=== PATIENT | female | born 1980 | race African-American/Black ===

== ENCOUNTER 2022-05-20 16:32 | Emergency (ER) | payer MEDICAID, SELFPAY ==
[2022-05-20 16:43] VITALS: BP 131/78; PULSE 76; RESP 16; TEMP 37.1; O2SAT 99; BMI 23.3
[2022-05-20 17:00] VITALS: BP 123/99; PULSE 89; O2SAT 98
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
[2022-05-20] MEDS: IBUPROFEN 200 MG TABLET 600 MG PO (18:11)
[2022-05-20 19:00] VITALS: BP 113/75; PULSE 86; O2SAT 99
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
== END 2022-05-20 19:37 | disposition home or self-care (01) ==
PROVIDERS: Emergency Provider Family Medicine; PCP Advanced Practice Midwife
DX: S39.012A Strain of muscle, fascia and tendon of lower back, initial encounter (principal); V43.52XA Car driver injured in collision with other type car in traffic accident, initial encounter
CPT/HCPCS: 72131; 99283; 99284; A9270

== ENCOUNTER 2022-09-19 14:00 | Outpatient (RCR) | payer MEDICAID, SELFPAY ==
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
== END 2022-12-26 23:59 | disposition home or self-care (01) ==
PROVIDERS: PCP Advanced Practice Midwife; Visit Provider Family Medicine
DX: M54.50 Low back pain, unspecified (principal); Z51.89 Encounter for other specified aftercare
CPT/HCPCS: 97110; 97161

== ENCOUNTER 2023-12-26 08:10 | Outpatient (CLI) | payer MEDICAID, SELFPAY ==
--- OUTSIDE RECORDS SUMMARY | 2023-12-29 14:32 | XMS_ITS | Clinical Summary ---
Author Organization [employer] [facility] [employer] Address [place], [place] [address] Care Team Providers Care Stamp Classifier Name Role Phone Ailin Montes MD Primary Care Provider [phone] None, Dr Unavailable Unavailable Allergies Active Allergy Reactions Criticality Noted Date Comments Sulfa (Sulfonamide Antibiotics) Rash 01/07 Medications Medication Sig Dispensed Refills Start Date End Date Status ergocalciferol (VITAMIN D2; DRISDOL) 50,000 unit capsuleIndications: Vitamin D deficiency TAKE 1 CAPSULE BY MOUTH ON FRIDAY, AND FRIDAY 12 capsule 0 02/06/2014 Active adapalene (DIFFERIN) 0.1 % gelIndications:Acne Apply topically to affected area(s) at bedtime. 1 Tube 0 03/14/2014 Active Cholecalciferol, Vitamin D3, (VITAMIN D-3) 5,000 unit tabIndications:Claudia min D deficiency Take 1 tablet by mouth once daily. 90 tablet 3 03/23/2014 Active Active Problems Problem Noted Date Diagnosed Date Acne 03/14/2014 Vitamin D deficiency 12/06/2013 Fatigue 12/06/2013 Encounters Date Type Department Care Team Description 12/25/2023 Lab Requisition [facility] [phone] Betty Eddy, COOLING PAN TENDER from Last 3 Months Immunizations Name Administration Dates Next Due DTaP 08/12/1986, 4,05/15/1982,1981,01/16/1982 Hepatitis A (Adult) 11/11/2011,05/15/2009,2000 Hepatitis B (Peds) 01/27/1996,01/13/1995, 995 Human Papilloma Virus Vaccine 06/04/2007, 007,12/03/2006 Inactivated Polio Vaccine 08/12/1986,,05/15/1982,1981,01/16/1982 Influenza A (H1N1), Inactiva natalie (Age >=3 Years) 05/15/2009 Influenza, IIV3 (Age >=3 years) 04/09/2011,04/07,03/28/2004 MMR 12/16/1994,08/12/1986,06/26/1983 Td (Age >=7 Years) 11/27/1999,01/27/1996 Tdap 08/10/2008 Family History Medical History Relation Name Comments Hypertension Father Other Father gout Good Health Mother Relation Name Status Comments Father Alive Mother Alive Social History Tobacco Use Types Packs/Day Years Used Date Smoking Tobacco: Never Smokeless Tobacco: Never Alcohol Use Standard Drinks/Week Comments Yes 0 (1 standard drink = 0.6 oz pur e alcohol) occasional Sex and Gender Information Value Date Recorded Sex Assigned at Not on file Gender Identity Not on file Sexual Orientation Not on file Obstetrics History Para Term AB IAB SAB Ectopic Multiple Livin g Live Births 1 2 Date Outcome GA Total Labor Labor/2nd/3rd Weight Sex Type Anes PTL Mimi A1 A5 Name Clin Last Filed Vital Signs Vital Sign Reading Time Taken Comments Blood Pressure 100/64 03/14/2014 10:00 AM CDT Pulse 70 03/14/2014 10:00 AM CDT Temperature 36.8 ??C (98.3 ??F) 03/14/2014 10:00 AM C DT Respiratory Rate - - Oxygen Saturation - - Inhaled Oxygen Concentration - - Weight 52.2 kg (115 lb) 03/14/2014 10:00 AM CDT Height 164.5 cm (5' 4.75) 03/14/2014 10:00 AM C DT Body Mass Index 19.29 03/14/2014 10:00 AM CDT Plan of Treatment Health Maintenance Due Date Last Done Comments Depression screening for age 12+ 1993 HIV for age 15-65 1996 BMI (ht and wt on same day) for age 18+ 11/09/1999 Hepatitis C screening for age 18-79 11/09/1999 Tetanus booster 08/10/2018 08/10/2008, 06/, 01/27/1996 COVID-19 vaccine series (2022-24 season) 2023 Pap test for age 21-65 06/22/2023 1, 06/22/2020, 10/05/2019, Additional history exists Influenza for age 9-49 02/08/2024 4, 04/09/2011, 05/15/2009, Additional history exists Tdap Completed 08/10/2008 Pneumococcal series for age 6-64 Aged Out No longer eligible based on patient's age to complete this topic Procedures Procedure Name Priority Date/Time Associated Diagnosis Comments LAB TRACKING EVENT Routine 12/24/2023 12 :00 PM CDT FORESTRY CONTRACTOR THIN PREP PAP SCREEN IMAGED Routine 06/22/2020 2:45 PM SAFETY AND HEALTH CONSULTANT from Last 3 Months or Most Recently Relevant to Health Maintenance Results * LAB TRACKING EVENT (12/24/2023 12:00 PM CDT) Other (Other) Client Collect / Unknown 12/24/2023 12:00 PM CDT 12/25/2023 3:34 PM CDT Betty Eddy NP LAB BILL ONLY [facility] [address] [place] [address], * FORESTRY CONTRACTOR THIN PREP PAP SCREEN IMAGED (06/22/2020 2:45 PM SAFETY AND HEALTH CONSULTANT) Case Report Gynecologic Cytology Report ? Case: [id number] ? Authorizing Provider: ??Sabra Skelton ?Collected: ? 06/22/2020 1445 ? MD Kelly ? Ordering Location: ? [facility] ?Received: ?06/23/2020 1901 ? First Screen: ?Jeanette Sethi ? Specimen: ?FORESTRY CONTRACTOR ThinPrep Vial Screening, Cervical/Vaginal ? 07/05/2020 8:04 AM [facility] INTERPRETATION/ RESULT NEGATIVE FOR INTRAEPITHELIAL LESION OR MALIGNANCY (NIL) (none) 07/05/2020 8:04 AM [facility] IMEN ADEQUACY Satisfactory for evaluation Endocervical component present 07/05/2020 8:04 AM [facility] HPV REQUEST HPV and PAP 07/05/2020 8:04 AM [facility] Date of LMP 06/19/2020 07/05/2020 8:04 AM [facility] Last Pap Date 10/05/2019 07/05/2020 8:04 AM [facility] Last Pap Result NIL 8:04 AM [facility] Comment:+HPV Additional Information 07/05/2020 8:04 AM [facility] Comment: Interpreted at [facility] - [address], [place] [address] Automated Review Successful 07/05/2020 8:04 AM [facility] Comment:Specimen processed s uccessfully by automated insulation manager device, ThinPrep Imaging System, [employer] ANCILLARY TESTING FORESTRY CONTRACTOR HPV Ordered, Please see separate report 07/05/2020 8:04 AM [facility] Note The pap test is a screening technique, not a diagnostic procedure. It is used primarily to screen for squamous cancers and precursor lesions. Published studies have shown that it is subject to both false negative and false positive results. The pap test should not be used as the sole means to diagnose or exclude pre-malignant and malignant lesions. 07/05/2020 8:04 AM [facility] Other (Cervical/Vagina l) 06/22/2020 2:45 PM SAFETY AND HEALTH CONSULTANT 06/23/2020 7:01 PM SAFETY AND HEALTH CONSULTANT Sabra Skelton MD PATHOLOGY/ CYTOLOGY [facility] [address] [place] [address], [place] from Last 3 Months or Most Recently Relevant to Health Maintenance Care Teams Stamp Classifier Relationship Specialty Start Date End Date Ailin Montes MD [address] [facility] [place] [address] PCP - General Family Practice 12/06/13 None, Dr Borrego 03/03/10
--- OUTSIDE RECORDS SUMMARY | 2023-12-29 14:33 | XMS_ITS | Clinical Summary ---
Author Organization [facility] Address [address] [place] [address] Care Team Providers Care Property Master Name Role Phone Giuliana Avila MD Primary Care Provider [phone] Source Comments You are receiving this document as you are listed as the primary care provider,follow-up provider, or the patient has been referred to you for consultation.This is in compliance with the Medicare and[facility] EHR Incentive Program,which states Providers who transition their patient to another setting of careor provider of care or refers their patient to another provider of care shouldprovide summary care record for each transition of care or referral. [employer] Allergies Active Allergy Reactions Criticality Noted Date Comments Sulfa Antibiotics Anaphylaxis High 01/16/2015 Medications Medication Sig Dispensed Refills Start Date End Date Status adapalene (AKA DIFFERIN) 0.1 % creamIndications:Scre ening Apply topically every evening. 45 g 2 01/16/2015 Active MULTIPLE VITAMINS OR One daily Acti ve Active Problems Problem Noted Date Diagnosed Date Cervical cancer screening 12/11/2017 Overview: Per visit note : History of abnormal Pap smear: yes - had colp in past, normal since 2013 NILM ([facility]) 2018 NILM, HPV negative 37 y.o. Plan: Co-test 11/2022 Hyperlipidemia 02/21/2015 Pancytopenia 02/21/2015 Immunizations Name Administration Dates Next Due Influenza IIV4 (Quadrivalent) 0.5mL (46276) 02/08 Tdap 08/10/2008 Family History Medical History Relation Name Comments Alcohol/Drug Abuse Father Hypertension Father Other Father gout Seizure Disorder Father Alcohol/Drug Abuse Mother Domestic Violence Mother Depression Brother 2 Diabetes, Type II Maternal Grandmother Relation Name Status Comments Father Alive Mother Alive Brother 1 Alive Brother 2 Maternal Grandfather Maternal Grandmother (Age 60) em physema Other Alive Paternal Grandfather Alive Paternal Grandmother Sister Alive Son 1 Alive Son 2 Alive Social History Tobacco Use Types Packs/Day Years Used Date Smoking Tobacco: Never Smokeless Tobacco: Never Alcohol Use Standard Drinks/Week Comments No 0 (1 standard drink = 0.6 oz pur e alcohol) social Sex and Gender Information Value Date Recorded Sex Assigned at Not on file Gender Identity Not on file Sexual Orientation Not on file Last Filed Vital Signs Vital Sign Reading Time Taken Comments Blood Pressure 100/63 05/19/2018 1:34 PM [employer] MARKETING MANAGER Pulse 81 05/19/2018 1:34 PM [employer]COMM[employer] MARKETING MANAGER Temperature 37.6 ??C (99.7 ??F) 07/22/2017 1:07 PM CS T Respiratory Rate 18 07/22/2017 1:07 PM [employer] MARKETING MANAGER Oxygen Saturation 99% 02/28/2015 2:46 PM CDT Inhaled Oxygen Concentration - - Weight 55.3 kg (122 lb) 12/01/2017 10:24 AM CDT Height 163.2 cm (5' 4.25) 12/01/2017 10:24 AM C DT Body Mass Index 20.78 12/01/2017 10:24 AM CDT Plan of Treatment Health Maintenance Due Date Last Done Comments Hep C Screening (Preventive Services) 1981 Mammogram 1981 HepB (1) 2000 DTaP/Tdap/Td (7 - Tdap) 08/10/2018 08/11/19 09, 11/27/1999, 01/27/1996, Additional history exists Adult Preventive Visit 12/02/2019 8, 01/20/2017, 01/22/2016, Additional history exists Cervical Cancer Screening 12/01/20222017, 12/07/2014 (Completed) COVID-19 Vaccine ( season) 2023 Influenza (#1) 2024 04/11/2017, 02/08, 04/09/2011, Additional history exists Zoster/Shingles (1 of 2) 11/09/2031 IPV (Polio) Completed 08/12/1986, 06/09, 05/15/1982, Additional history exists HPV Vaccine Completed 06/04/2007, 01/2007, 12/03/2006 HepA Completed 11/11/2011, 12/2008, 08/13/2000 HIV Screening (Preventive Services) Completed 02/16/2015 Hib Aged Out No longer eligi ble based on patient's age to complete this topic MCV4 Aged Out No longer eligi ble based on patient's age to complete this topic Pneumococcal Aged Out No longer eligi ble based on patient's age to complete this topic Procedures Procedure Name Priority Date/Time Associated Diagnosis Comments PAP TEST, ROUTINE Routine 12/01/2017 11: 46 AM CDT Screening for malignant neoplasm of cervix HIV ANTIBODY Routine 02/16/2015 9:22 AM CDT Screening Neutropenia from Last 3 Months or Most Recently Relevant to Health Maintenance Results * Pap Test, Routine (12/01/2017 11:46 AM CDT) Cytology, Pap (NOTE) Baby Nurse Cytology Report Patient Name: YAMINI GALLARDO Taken: 12/01/2017 Received: 12/01/2017 Reported: 12/08/2017 Physician(s): NIKKI RAHMAN ?Source of Specimen Pap Test, Routine Cervical/Endocervi alexandria: ?Specimen Adequacy ?Satisfactory for evaluation. ??Endocervical component present. ? Final Cytologic Interpretation/Res ult NEGATIVE FOR INTRAEPITHELIAL LESION OR MALIGNANCY (NILM) ?? *Electronically Signed Out By Deyanira Zavala, ??CT (ASCP)* Deyanira Zavala, ??CT (ASCP) ? Pap Smear History Date of Last Menstrual Period: 11/17/2017 ?? Microscopic Description Microscopic examination is performed. [facility] Department of Pathology [address] [place] [address] ??[id number] [facility] 12/01/2017 11:4 6 AM CDT 12/01/2017 6:02 PM CDT Nikki Rahman APRN, CNP LAB_1 Performing Organization Address [facility] de Phone Number [facility] [phone] * HIV ANTIBODY (02/16/2015 9:22 AM CDT) HIV 1/2 Antibody Negative (Non Reactive) NEGNR [facility] Comment: HIV Antibody testing may be falsely negative during the window period. If the patient has had recent exposure (within the past four weeks), consider contacting Infectious Diseases for clarification. 02/16/2015 9:22 AM CDT 02/16/2015 9:29 AM CDT Narrative [facility] - 02/17/2015 10:51 AM CDT Performed at [facility], [address] [place] [address] ??[phone] Giuliana Avila MD LAB_1 Performing Organization Address [facility] de Phone Number [facility] [phone] from Last 3 Months or Most Recently Relevant to Health Maintenance Care Teams Property Master Relationship Specialty Start Date End Date Giuliana Avila MD [address] [place] [address] PCP - General Family Practice 01/03/15
--- OUTSIDE RECORDS SUMMARY | 2023-12-29 14:33 | XMS_ITS | Encounter Summary ---
Author Organization [facility] Address [address] [place] [address] Care Team Providers Care Founder And Chief Technical Officer Name Role Phone Giuliana Avila MD Primary Care Provider [phone] Encounter Details Date Type Department Care Team (Late st Contact Info) Description 12/18/2015 Scanned History External to Transferred Record, Provider TRANSFERRED RECORDS Social History Tobacco Use Types Packs/Day Years Used Date Smoking Tobacco: Never Smokeless Tobacco: Never Alcohol Use Standard Drinks/Week Comments No 0 (1 standard drink = 0.6 oz pur e alcohol) Sex and Gender Information Value Date Recorded Sex Assigned at Not on file Gender Identity Not on file Sexual Orientation Not on file documented as of this encounter Plan of Treatment Not on file documented as of this encounter Visit Diagnoses Not on filedocumented in this encounter Care Teams Founder And Chief Technical Officer Relationship Specialty Start Date End Date Giuliana Avila MD [address] [facility] [place], [place] [address] PCP - General Family Practice 01/03/15 documented as of this encounter
== END 2023-12-26 08:11 | disposition home or self-care (01) ==
LOC: NFLDREF 12-29 14:31
PROVIDERS: Visit Provider Registered Nurse
DX: Z13.6 Encounter for screening for cardiovascular disorders (principal); Z13.1 Encounter for screening for diabetes mellitus
CPT/HCPCS: 80061; 82947

== ENCOUNTER 2024-01-05 08:52 | Outpatient (CLI) | payer MEDICAID, SELFPAY ==
--- NOTE | 2024-01-05 08:45 | CRLHL7_ITS ---
For Patients: As a result of the Century Cures Act, medical imaging exams and procedure reports are released immediately into your electronic medical record. You may view this report before your referring provider. If you have questions, please contact your health care provider. DIGITAL DIAGNOSTIC BILATERAL MAMMOGRAM USING TOMOSYNTHESIS AND COMPUTER-AIDED DETECTION RIGHT BREAST ULTRASOUND CLINICAL HISTORY: RIGHT breast lump. COMPARISON: Ultrasound axilla 03/25/2019. TECHNIQUE: Digital BILATERAL mammogram in four projections with computer-aided detection. Tomosynthesis was used in this interpretation. Real-time ultrasound imaging of RIGHT breast with imaging documentation. Scanning was performed by both the technologist and the radiologist. BREAST COMPOSITION: There are areas of scattered fibroglandular density. FINDINGS: 3D CC/MLO BILATERAL mammogram images submitted. No suspicious mass or architectural distortion. Small nodular area is present within the RIGHT breast corresponding to the palpable abnormality. No suspicious calcifications. No adenopathy. Targeted RIGHT breast ultrasound performed 9 o`clock 7 cm from the nipple. Circumscribed nodular area corresponds to the palpable area of concern measuring 3.3 x 1.0 x 1.8 cm. This is freely mobile and has echotexture similar to fibroglandular tissue. No distal shadowing. No abnormal vascularity. IMPRESSION: Benign hamartoma/fibroadenoma lipoma RIGHT breast 9 o`clock 7 cm from the nipple measuring 3.3 x 1.0 x 1.8 cm. No evidence of malignancy. RECOMMENDATIONS: Annual BILATERAL screening mammography. Results and recommendations discussed with the patient. BI-RADS Category 2: Benign A lay language report of this examination will be provided to the patient. Dictated by Abdulkadir Jackson MD @ 01/05/2024 9:48:23 AM jj/Dictated by: Abdulkadir Jackson MD @ 01/05/2024 9:48:00 AM (Electronically Signed)
--- OUTSIDE RECORDS SUMMARY | 2024-01-05 08:54 | XMS_ITS | Clinical Summary ---
Author Organization [facility] Address [place], [place] [address] Care Team Providers Care Aircraft Fuselage Framer Name Role Phone Ailin Montes MD Primary Care Provider [phone] None, Dr Unavailable Unavailable Allergies Active Allergy [...] Department Care Team Description 12/25/2023 Lab Requisition [facility] [phone] Betty Eddy, AUTOMOTIVE BUYER from Last 3 Months Immunizations Name Administration [...] age 18-79 11/09/1999 Tetanus booster 08/10/2018 08/10/2008, 06, 01/27/1996 COVID-19 vaccine series (2022- season) 2023 Influenza for age 9-49 02/08/2024 4, 04/09/2011, 05/15/2009, Additional history exists Pap test for age 21-65 12/23/2026 4, 12/24/2023, 06/22/2020, Additional history exists Tdap Completed 08/10/2008 Pneumococcal series for age 6-64 Aged Out No longer eligible based on patient's age to complete this topic Procedures Procedure Name Priority Date/Time Associated Diagnosis Comments UNDERGROUND ROOF BOLTER THIN PREP PAP SCREEN IMAGED Routine 12/24/2023 1:55 PM CDT HPV THIN PREP Routine 12/24/2023 1:55 PM CDT LAB TRACKING EVENT Routine 12/24/2023 12 :00 PM CDT from Last 3 Months Results * UNDERGROUND ROOF BOLTER THIN PREP PAP SCREEN IMAGED (12/24/2023 1:55 PM CDT) Case Report Gynecologic Cytology Report ? Case: [id number] ? Authorizing Provider: ??Betty Eddy NP ?? Collected: ? 12/24/2023 1355 ? Ordering Location: ? [facility] ?Received: ?12/26/2023 1012 ? First Screen: ?[employer] ? Specimen: ?UNDERGROUND ROOF BOLTER ThinPrep Vial Screening, Cervical ? 01/01/2024 12:44 PM CDT [facility] INTERPRETATION/ RESULT NEGATIVE FOR INTRAEPITHELIAL LESION OR MALIGNANCY (NIL) (none) 01/01/2024 12:44 PM CDT [facility] IMEN ADEQUACY Satisfactory for evaluation Endocervical component present 01/01/2024 12:44 PM CDT [facility] HPV REQUEST HPV and PAP 01/01/2024 12:44 PM CDT [facility] Date of LMP 11/27/2023 01/01/2024 12:44 PM CDT [facility] Last Pap Date 06/22/2020 01/01/2024 12:44 PM CDT [facility] Last Pap Result NIL 12:44 PM CDT [facility] Abnormal Pap or [place] Bx in last 5 years No 01/01/2024 12:44 PM CDT [facility] Menstrual Status Regular Periods 01/01/2024 12:44 PM CDT [facility] Additional Information 01/01/2024 12:44 PM CDT [facility] Comment: Interpreted at [facility] - [address], [place] [address] Automated Review Successful 01/01/2024 12:44 PM CDT [facility] Comment:Specimen processed s uccessfully by automated inspector watch parts device, ThinPrep Imaging System, [employer] ANCILLARY TESTING UNDERGROUND ROOF BOLTER HPV Ordered, Please see separate report 01/01/2024 12:44 PM CDT [facility] Note The pap test is a screening technique, not a diagnostic procedure. It is used primarily to screen for squamous cancers and precursor lesions. Published studies have shown that it is subject to both false negative and false positive results. The pap test should not be used as the sole means to diagnose or exclude pre-malignant and malignant lesions. 01/01/2024 12:44 PM CDT [facility] Other (Cervical) 12/24/2023 1:55 PM CDT 12/26/2023 10:12 AM CDT Betty Eddy NP PATHOLOGY/CYTOLOG Y Performing Organization Address [facility] Co de Phone Number [facility] [address] [place] [address], * HPV HIGH RISK (12/24/2023 1:55 PM CDT) TYPE 16 Negative Negative 12/31/2023 6:23 AM CDT [facility] TYPE 18 Negative Negative 12/31/2023 6:23 AM CDT [facility] OTHER HIGH RISK TYPES Negative Negative 12/31/2023 6:23 AM CDT [facility] Other (Cervical) 12/24/2023 1:55 PM CDT 12/26/2023 10:12 AM CDT Narrative [facility] - 12/31/2023 6:23 AM CDT HPV types 16, 18, 31, 33, 35, 39, 45, 51, 52, 56, 58, 59, 66 and 68 DNA were undetectable or below the pre-set threshold. Methodology: Tracy Eliane 4800 HPV Test Betty Eddy NP MICROBIOLOGY Performing Organization Address [facility] Co de Phone Number [facility] [address] [place] [address], * LAB TRACKING EVENT (12/24/2023 12:00 PM CDT) Other (Other) Client Collect / Unknown 12/24/2023 12:00 PM CDT 12/25/2023 3:34 PM CDT Betty Eddy AUTOMOTIVE BUYER LAB BILL ONLY [facility] [address] [place] [address], from Last 3 Months Care Teams Aircraft Fuselage Framer Relationship Specialty Start Date End Date Ailin Montes MD [address] [facility] [address] [address] PCP - General Family Practice 12/06/13 None, Dr Borrego 03/03/10
--- OUTSIDE RECORDS SUMMARY | 2024-01-05 08:54 | XMS_ITS | Encounter Summary ---
Author Organization [facility] Address [address] [place] [address] Care Team Providers Care Plumber Maintenance Name Role Phone Giuliana Avila MD Primary Care Provider [phone] Encounter Details Date Type Department Care Team [...] on filedocumented in this encounter Care Teams Plumber Maintenance Relationship Specialty Start Date End Date Giuliana Avila MD [address] [facility] [place], [place] [id number] PCP - General Family Practice 01/03/15 documented as of this encounter
--- OUTSIDE RECORDS SUMMARY | 2024-01-05 08:54 | XMS_ITS | Clinical Summary ---
[facility] Organization [facility] Address [address] [place] [address] Care Team Providers Care Staff Radiologist Name Role Phone Giuliana Avila MD Primary Care Provider [phone] Source Comments You are receiving this document as you are listed as the primary care provider,follow-up provider, or the patient has been referred to you for consultation.This is in compliance with the Medicare and[facility] EHR Incentive Program,which states Providers who transition their patient to another setting of careor provider of care or refers their patient to another provider of care shouldprovide summary care record for each transition of care or referral. Pidefarma Allergies Active Allergy Reactions Criticality Noted Date [...] Dates Next Due Influenza IIV4 (Quadrivalent) 0.5mL (97005) 02/08 Tdap 08/10/2008 Family History Medical History [...] Comments Blood Pressure 100/63 05/19/2018 1:34 PM GRINDER MACHINE SETTER Pulse 81 05/19/2018 1:34 PM GRINDER MACHINE SETTER Temperature 37.6 ??C (99.7 ??F) 07/22/2017 1:07 PM CS T Respiratory Rate 18 07/22/2017 1:07 PM GRINDER MACHINE SETTER Oxygen Saturation 99% 02/28/2015 2:46 PM CDT [...] (12/01/2017 11:46 AM CDT) Cytology, Pap (NOTE) [facility] [employer] Cytology Report Patient Name: YAMINI GALLARDO Taken: [...] ?? Microscopic Description Microscopic examination is performed. [facility] Department of Pathology [address] [place] [address] ??[id number] [facility] 12/01/2017 11:4 6 AM CDT 12/01/2017 6:02 PM CDT Nikki Rahman APRN, CNP LAB_1 Performing Organization Address [facility] de Phone Number [facility] [phone] * HIV ANTIBODY (02/16/2015 9:22 AM CDT) HIV 1/2 Antibody Negative (Non Reactive) NEGNR [facility] Comment: HIV Antibody testing may be falsely negative during the window period. If the patient has had recent exposure (within the past four weeks), consider contacting Infectious Diseases for clarification. 02/16/2015 9:22 AM CDT 02/16/2015 9:29 AM CDT Narrative [facility] - 02/17/2015 10:51 AM CDT Performed at [facility], [address] [place] [address] ??[id number] Giuliana Avila MD LAB_1 Performing Organization Address [facility] de Phone Number [facility] [phone] from Last 3 Months or Most Recently Relevant to Health Maintenance Care Teams Staff Radiologist Relationship Specialty Start Date End Date Giuliana Avila MD [address] [place] [address] PCP - General Family Practice 01/03/15
--- NOTE | 2024-01-05 09:15 | CRLHL7_ITS ---
For Patients: As a result of the Cures Act, medical imaging exams and procedure reports are released immediately into your electronic medical record. You may view this report before your referring provider. If you have questions, please contact your health care provider. PLEASE SEE DIGITAL DIAGNOSTIC BILATERAL MAMMOGRAM PERFORMED SAME DAY CRL:[email or web address] umana/Dictated by: Abdulkadir Jakcson MD @ 01/05/2024 9:48:00 AM (Electronically Signed)
== END 2024-01-05 08:53 | disposition home or self-care (01) ==
LOC: MAMMO 08:52
PROVIDERS: Visit Provider Registered Nurse
DX: N63.10 Unspecified lump in the right breast, unspecified quadrant (principal); D24.1 Benign neoplasm of right breast
CPT/HCPCS: 76642; 77066; G0279

== ENCOUNTER 2025-01-05 09:39 | Outpatient (CLI) | payer MEDICAID, SELFPAY | END 2025-01-05 09:40 | disposition home or self-care (01) | LOC: NFLDREF 01-06 17:20 | PROVIDERS: Visit Provider Physician Assistant | DX: E78.5 Hyperlipidemia, unspecified (principal); Z13.1 Encounter for screening for diabetes mellitus | CPT/HCPCS: 80061; 82947 ==

== ENCOUNTER 2025-02-10 15:43 | Outpatient (CLI) | payer MEDICAID, SELFPAY ==
--- NOTE | 2025-02-10 15:40 | CRLHL7_ITS ---
For Patients: As a result of the Century Cures Act, medical imaging exams and procedure reports are released immediately into your electronic medical record. You may view this report before your referring provider. If you have questions, please contact your health care provider. INDICATION: BILATERAL SCREENING MAMMOGRAM, ASYMPTOMATIC 44 Y/O FEMALE COMPARISON: 01/05/2024 TECHNIQUE: Digital mammogram in CC and MLO projections including computer-aided detection (CAD) and tomosynthesis. BREAST COMPOSITION: The breasts are heterogeneously dense, which may obscure small masses. FINDINGS: No suspicious findings. ASSESSMENT: BI-RADS 1 Negative RECOMMENDATION: Annual screening mammogram. A lay language report of this examination will be provided to the patient. Dictated by: Abdulkadir Jackson MD @ 02/11/2025 08:50:48 (Electronically Signed)
== END 2025-02-10 15:44 | disposition home or self-care (01) ==
LOC: MAMMO 15:44
PROVIDERS: Visit Provider Registered Nurse
DX: Z12.31 Encounter for screening mammogram for malignant neoplasm of breast (principal); R92.333 Mammographic heterogeneous density, bilateral breasts
CPT/HCPCS: 77063; 77067